=== PATIENT | female | born 1975 | race Caucasian/White ===

== ENCOUNTER 2018-11-02 14:17 | Inpatient (IN) | payer OTHER ==
[2018-11-02 15:31] VITALS: BMI 24.7
--- NOTE | 2018-11-02 16:12 | HP ---
COWS - Scale Resting Pulse: 0= [place] 80 or Below Sweatin=Flushed/Facial Moisture Restless Observation: 3= Extraneous Movement Pupil Size: 0= Normal to Room Light Bone or Joint Aches: 1= Mild Discomfort Runny Nose/ Eye Tearin= None GI Upset > 30mins: 1= Stomach Cramp Tremor Observation: 2= Slight Tremor Visible Yawning Observation: 0= None Anxiety or Irritability: 2=Irritable/Anxious Goose Flesh Skin: 0=Smooth Skin COWS Score: 11 CIWA Score Nausea/Vomitin-Mild Nausea/No Vomiting Muscle Tremors: 4-Moderate,w/Arms Extend Anxiety: 4-Mod. Anxious/Guarded Agitation: 4-Moderately Restless Paroxysmal Sweats: 2 Orientation: 0-Oriented Tacttile Disturbances: 0-None Auditory Disturbances: 0-None Visual Disturbances: 0-None Headache: 0-None Present CIWA-Ar Total Score: 15 - Admission Criteria OASAS Guidelines: Admission for Medically Managed Detox: Requires at least one of the followin. CIWA greater than 12 2. Seizures within the past 24 hours 3. Delirium tremens within the past 24 hours 4. Hallucinations within the past 24 hours 5. Acute intervention needed for co occurring medical disorder 6. Acute intervention needed for co occurring psychiatric disorder 7. Severe withdrawal that cannot be handled at a lower level of care (continued vomiting, continued diarrhea, abnormal vital signs) requiring intravenous medication and/or fluids 8. Admission ROS [facility] Allergies/Adverse Reactions: Allergies Allergy/AdvReac Type Severity Reaction Status Date / Time No Known Allergies Allergy Verified 11/02/18 15:23 History of Present Illness: pt here requesting detox from opiate use , reports moved to [place] from [place] in March 2018 , reports rx meds x 17 years left knee 2/2 injury , illicit use x10 years after she no longer had rx for pain meds , reports spending 200k / year on pain meds , financing habit through work and family $$ , since coming to [place] started using heroin , currently 6 bags /day " more if I can get it " denies IVDU , latest use this a.m. 9 o' clock 1 bag, current symptoms as above . Previous detox in [facility] xanax - reports 2 sticks/day since 3 years ago , reports withdrawal if not taking , denies seizures , blackouts etoh - occasional use tobacco - 1 ppd , interested in smoking cessation " not bad enough to want to try " cocaine : occasional use denies IVDU cannabis : occasional 4 fentanyl - denies use . PMHX : reports hypoglycemia PSHx : denies PSych denies , denies current SI / Hi age 20 in [place] , LMP now SHx : lives w/ friend , unemployed , planning to return to [place] , legal - denies Exam Limitations: Clinical Condition - Ebola screening Have you traveled outside of the country in the last 21 days: No Have you had contact with anyone from an Ebola affected area: No Do you have a fever: No - Review of Systems Constitutional: See HPI EENT: reports: See HPI Respiratory: reports: No Symptoms reported Cardiac: reports: No Symptoms Reported GI: reports: See HPI : reports: No Symptoms Reported Musculoskeletal: reports: See HPI, Back Pain, Joint Pain Neuro: reports: See HPI Endocrine: reports: See HPI Psychiatric: reports: Orientated x3, Agitated, Anxious Patient History - Smoking Cessation Smoking history: Current every day smoker Initiated information on smoking cessation: No - Substances abused Alprazolam (Xanax) Substance route: Inhalation Frequency: Daily Amount used: 4mg Age of first use: 38 Date of last use: 11/01/18 Heroin Substance route: Inhalation Frequency: Daily Amount used: 10bags Age of first use: 42 Date of last use: 11/02/18 Family Disease History - Family Disease History Family History: Denies Admission Physical Exam [facility] - Vital Signs Vital Signs: Vital Signs - 24 hr 11/02/18 15:21 Temperature 97.0 F L Pulse Rate 72 Respiratory 18 Rate Blood Pressure 145/74 - Physical General Appearance: Yes: Moderate Distress, Sweating, Anxious HEENTM: Yes: EOMI, Hearing grossly Normal, Normocephalic, Normal Voice Respiratory: Yes: Lungs Clear, Normal Breath Sounds, No Respiratory Distress, No Accessory Muscle Use Neck: Yes: No masses,lesions,Nodules, Trachea in good position Cardiology: Yes: Regular Rhythm, Regular Rate, S1, S2 Abdominal: Yes: Non Tender, Soft Back: Yes: Normal Inspection Musculoskeletal: Yes: Gait Steady Extremities: Yes: Normal Range of Motion, Non-Tender Neurological: Yes: Fully Oriented, Alert, Motor Strength 5/5 Integumentary: Yes: Warm - Diagnostic (1) Opiate abuse, continuous Current Visit: Yes Status: Acute (2) Sedative hypnotic or anxiolytic dependence Current Visit: Yes Status: Acute (3) Cocaine abuse Current Visit: Yes Status: Acute (4) Cannabis abuse Current Visit: Yes Status: Acute (5) Nicotine dependence Current Visit: Yes Status: Chronic Qualifiers: Nicotine product type: cigarettes Breathalyzer - Breathalyzer Breathalyzer: 0 Urine Drug Screen - Test Device Lot number: [id number] Expiration date: 07/26/20 - Control Is test valid?: Yes - Results Drug screen NEGATIVE: No Urine drug screen results: THC-Marijuana, MADELEINE-Cocaine, FEN-Fentanyl, MOP-Opiates , OXY-Oxycodone, BZO-Benzodiazepines Inpatient Rehab Admission - Rehab Decision to Admit Inpatient rehab admission?: No
[2018-11-02] MEDS ORDERED: MENTHOL/PHENOL 1 EACH UD MM PRN (16:24)
[2018-11-02] MEDS ORDERED: BISMUTH SUBSALICYLATE 524 MG/30 ML UD PO PRN (16:24)
[2018-11-02] MEDS ORDERED: ACETAMINOPHEN 325 MG TABLET (FP) PO PRN ×2 (16:24)
[2018-11-02] MEDS ORDERED: MAGNESIUM HYDROX 2400MG/30ML ORAL SUSPENSION 30 ML CUP PO PRN (16:24)
[2018-11-02] MEDS ORDERED: IBUPROFEN 400 MG TABLET (FP) PO PRN (16:24)
[2018-11-02] MEDS ORDERED: MAGNESIUM CITRATE 300 ML BOTTLE PO PRN (16:24)
[2018-11-02] MEDS: chlordiazePOXIDE HCL 25 MG CAPSULE PO SCH ×2 (18:38→22:42)
[2018-11-02] MEDS: THIAMINE HCL 100 MG TABLET (FP) PO SCH (22:43)
[2018-11-02] MEDS: MELATONIN 5 MG TABLETS PO PRN (22:43)
[2018-11-02] MEDS ORDERED: METHADONE HCL 10 MG TABLET (FOR DETOX USE ONLY) PO ONE (23:00)
[2018-11-03] MEDS: chlordiazePOXIDE HCL 25 MG CAPSULE PO SCH ×4 (06:19→22:47)
[2018-11-03] MEDS ORDERED: METHADONE HCL 5 MG TABLET (FOR DETOX USE ONLY) PO ONE (10:00)
[2018-11-03] MEDS: PRENATAL VITAMINS W/ FOLIC ACID TABLET (FP) PO SCH (10:24)
[2018-11-03] MEDS: NICOTINE POLACRILEX 2 MG GUM BUC PRN ×3 (10:27→15:47)
[2018-11-03] MEDS: MAG HYDROX/AL HYDROX/SIMETH 30 ML UNIT-DOSE CUP PO PRN ×2 (10:28→19:55)
[2018-11-03 11:41] LABS: HEMATOCRIT 38.3 % (32.4-45.2); HEMOGLOBIN 12.8 GM/dL (10.7-15.3); MCH 33.6 pg (25.7-33.7); MCHC 33.5 g/dl (32.0-36.0); MEAN CELL VOLUME 100.5 fl (80-96); MEAN PLT VOLUME 9.4 fl (7.5-11.1); PLATELET COUNT 286 K/MM3 (134-434); RBC 3.81 M/mm3 (3.60-5.2); RDW 13.6 % (11.6-15.6)
[2018-11-03 11:42] LABS: ALBUMIN 3.2 g/dl (3.4-5.0); BILIRUBIN,TOTAL 0.5 mg/dL (0.2-1); CALCIUM 8.7 mg/dL (8.5-10.1); CREATININE 1.1 mg/dL (0.55-1.3); POTASSIUM 3.4 mmol/L (3.5-5.1); TOT PROT 6.1 g/dl (6.4-8.2)
--- NOTE | 2018-11-03 11:45 | EKG ---
Test Reason : Blood Pressure : / mmHG Vent. Rate : 068 BPM Atrial Rate : 068 BPM P-R Int : 108 ms QRS Dur : 074 ms QT Int : 404 ms P-R-T Axes : 047 059 053 degrees QTc Int : 429 ms SINUS RHYTHM WITH SHORT [place] OTHERWISE NORMAL ECG NO PREVIOUS ECGS AVAILABLE Confirmed by RICARDO SHEPARD, GRISELDA ([id number]) on 11/03/2018 11:44:51 AM Referred By: Confirmed By:GRISELDA SILVA MD
--- NOTE | 2018-11-03 12:25 | PN ---
[facility] CIWA - CIWA Score Nausea/Vomitin-No Nausea/No Vomiting Muscle Tremors: 2 Anxiety: 3 Agitation: 1-Slight > Activity Paroxysmal Sweats: 4-Forehead w/Sweat Beads Orientation: 0-Oriented Tacttile Disturbances: 0-None Auditory Disturbances: 0-None Visual Disturbances: 0-None Headache: 1-Very Mild CIWA-Ar Total Score: 11 S COWS - Scale Resting Pulse: 0= [place] 80 or Below Sweatin=Flushed/Facial Moisture Restless Observation: 1= Difficult to Sit Still Pupil Size: 0= Normal to Room Light Bone or Joint Aches: 1= Mild Discomfort Runny Nose/ Eye Tearin= None GI Upset > 30mins: 0= None Tremor Observation of Outstretched Hands: 2= Slight Tremor Visible Yawning Observation: 1= 1-2x During Session Anxiety or Irritability: 2=Irritable/Anxious Goose Flesh Skin: 0=Smooth Skin COWS Score: 9 [facility] Progress Note (SOAP) Subjective: c/o anxiety, mild body aches/headache, and tremor. Objective: 11/03/18 12:28 Vital Signs 11/03/18 11/03/18 05:00 10:01 Temperature 97.7 F 98.1 F Pulse Rate 57 L 77 Respiratory 16 18 Rate Blood Pressure 112/74 139/68 Lab Results WBC 5.0 K/mm3 (4.0-10.0) 11/03/18 08:00 RBC 3.81 M/mm3 (3.60-5.2) 11/03/18 08:00 Hgb 12.8 GM/dL (10.7-15.3) 11/03/18 08:00 Hct 38.3 % (32.4-45.2) 11/03/18 08:00 MCV 100.5 fl (80-96) H 11/03/18 08:00 MCHC 33.5 g/dl (32.0-36.0) 11/03/18 08:00 RDW 13.6 % (11.6-15.6) 11/03/18 08:00 Plt Count 286 K/MM3 (134-434) 11/03/18 08:00 Sodium 139 mmol/L (136-145) 11/03/18 08:00 Potassium 3.4 mmol/L (3.5-5.1) L 11/03/18 08:00 Chloride 104 mmol/L (98-107) 11/03/18 08:00 Carbon Dioxide 28 mmol/L (21-32) 11/03/18 08:00 Anion Gap 7 MMOL/L (8-16) L 11/03/18 08:00 BUN 16 mg/dL (7-18) 11/03/18 08:00 Creatinine 1.1 mg/dL (0.55-1.3) 11/03/18 08:00 Random Glucose 99 mg/dL (74-106) 11/03/18 08:00 Calcium 8.7 mg/dL (8.5-10.1) 11/03/18 08:00 Labs reviewed. K+ level is 3.4 Assessment: 11/03/18 12:29 AOX3, in no respiratory distress withdrawal symptoms. Plan: continue detox increase fluids Potassium 20meq po daily for 3days and repeat potassium level.
--- NOTE | 2018-11-03 12:32 | PN ---
[facility] Progress Note Note: Pt's K+ level is 3.4, Potassium 20meq po daily for 3days ordered and repeat potassium level after.
[2018-11-03] MEDS: POTASSIUM CHLORIDE TABS 20 MEQ TABLET.ER (FP) PO SCH (14:50)
[2018-11-03] MEDS: chlordiazePOXIDE HCL 25 MG CAPSULE PO PRN ×2 (15:45→19:55)
[2018-11-03] MEDS: hydrOXYzine PAMOATE 25 MG CAPSULE (FP) PO PRN (15:45)
[2018-11-03] MEDS: PROCHLORPERAZINE MALEATE 5 MG TABLET PO PRN (19:55)
[2018-11-03] MEDS: THIAMINE HCL 100 MG TABLET (FP) PO SCH (22:46)
[2018-11-03] MEDS: MELATONIN 5 MG TABLETS PO PRN (22:47)
[2018-11-04] MEDS: chlordiazePOXIDE HCL 25 MG CAPSULE PO SCH ×2 (06:23→10:15)
[2018-11-04] MEDS: hydrOXYzine PAMOATE 25 MG CAPSULE (FP) PO PRN ×2 (06:25→17:50)
[2018-11-04] MEDS: PROCHLORPERAZINE MALEATE 5 MG TABLET PO PRN ×2 (08:52→21:54)
[2018-11-04] MEDS: PRENATAL VITAMINS W/ FOLIC ACID TABLET (FP) PO SCH (09:38)
[2018-11-04] MEDS: POTASSIUM CHLORIDE TABS 20 MEQ TABLET.ER (FP) PO SCH (09:38)
[2018-11-04] MEDS: METHOCARBAMOL 500 MG TABLET PO PRN ×2 (09:38→21:56)
[2018-11-04] MEDS ORDERED: METHADONE HCL 10 MG TABLET (FOR DETOX USE ONLY) PO ONE (10:00)
[2018-11-04 10:53] LABS: ALBUMIN 3.3 g/dl (3.4-5.0); BILIRUBIN,TOTAL 0.4 mg/dL (0.2-1); CALCIUM 9.3 mg/dL (8.5-10.1); CREATININE 0.9 mg/dL (0.55-1.3); TOT PROT 6.2 g/dl (6.4-8.2)
[2018-11-04] MEDS ORDERED: TRIMETHOBENZAMIDE HCL 200MG/2ML INJ IM PRN (11:29)
[2018-11-04] MEDS: NICOTINE POLACRILEX 2 MG GUM BUC PRN ×3 (12:47→17:50)
[2018-11-04] MEDS ORDERED: chlordiazePOXIDE HCL 10 MG CAPSULE PO PRN (17:00)
[2018-11-04] MEDS: chlordiazePOXIDE HCL 10 MG CAPSULE PO SCH ×2 (17:46→22:25)
--- NOTE | 2018-11-04 18:04 | PN ---
[facility] CIWA - CIWA Score Nausea/Vomitin-Mild Nausea/No Vomiting Muscle Tremors: 2 Anxiety: 2 Agitation: 2 Paroxysmal Sweats: 2 Orientation: 0-Oriented Tacttile Disturbances: 0-None Auditory Disturbances: 0-None Visual Disturbances: 0-None Headache: 0-None Present CIWA-Ar Total Score: 9 [facility] COWS - Scale Resting Pulse: 0= [place] 80 or Below Sweatin= Chills/Flushing Restless Observation: 1= Difficult to Sit Still Pupil Size: 0= Normal to Room Light Bone or Joint Aches: 2= Severe Diffuse Aches Runny Nose/ Eye Tearin= Runny Nose/Eyes GI Upset > 30mins: 2= Nausea/Diarrhea Tremor Observation of Outstretched Hands: 0= None Yawning Observation: 0= None Anxiety or Irritability: 2=Irritable/Anxious Goose Flesh Skin: 0=Smooth Skin COWS Score: 10 S Progress Note (SOAP) Subjective: Upset stomach, vomiting, chills, sweating Objective: 11/04/18 18:01 Last Vital Signs Temp Pulse Resp BP Pulse Ox 97.3 F L 66 18 114/70 11/04/18 13:42 11/04/18 13:42 11/04/18 13:42 11/04/18 13:42 Laboratory Tests 11/03/18 11/03/18 11/03/18 08:00 08:00 08:00 WBC 5.0 RBC 3.81 Hgb 12.8 Hct 38.3 MCV 100.5 H MCH 33.6 MCHC 33.5 RDW 13.6 Plt Count 286 MPV 9.4 Sodium 139 Potassium 3.4 L Chloride 104 Carbon Dioxide 28 Anion Gap 7 L BUN 16 Creatinine 1.1 Est GFR (CKD-EPI)AfAm 72.73 Est GFR (CKD-EPI)NonAf 62.75 Random Glucose 99 Calcium 8.7 Total Bilirubin 0.5 AST 9 L ALT 12 L Alkaline Phosphatase 46 Total Protein 6.1 L Albumin 3.2 L RPR Titer Nonreactive 11/04/18 07:40 WBC RBC Hgb Hct MCV MCH MCHC RDW Plt Count MPV Sodium 138 Potassium 4.0 Chloride 103 Carbon Dioxide 28 Anion Gap 7 L BUN 14 Creatinine 0.9 Est GFR (CKD-EPI)AfAm 92.70 Est GFR (CKD-EPI)NonAf 79.98 Random Glucose 71 L Calcium 9.3 Total Bilirubin 0.4 AST 7 L ALT 12 L Alkaline Phosphatase 44 L Total Protein 6.2 L Albumin 3.3 L RPR Titer Labs reviewed Assessment: 11/04/18 18:02 Withdrawal symptoms Plan: Continue detox Encouraged PO water hydration Tigan 200mg IM q8hr prn N/V
[2018-11-04] MEDS: THIAMINE HCL 100 MG TABLET (FP) PO SCH (21:53)
[2018-11-04] MEDS: MELATONIN 5 MG TABLETS PO PRN (21:54)
[2018-11-05] MEDS ORDERED: METHADONE HCL 5 MG TABLET (FOR DETOX USE ONLY) PO ONE (06:00)
[2018-11-05] MEDS: chlordiazePOXIDE HCL 10 MG CAPSULE PO SCH ×3 (06:19→17:34)
[2018-11-05] MEDS: METHOCARBAMOL 500 MG TABLET PO PRN ×3 (06:20→22:05)
[2018-11-05] MEDS: POTASSIUM CHLORIDE TABS 20 MEQ TABLET.ER (FP) PO SCH (10:04)
[2018-11-05] MEDS: PRENATAL VITAMINS W/ FOLIC ACID TABLET (FP) PO SCH (10:04)
[2018-11-05] MEDS: NICOTINE POLACRILEX 2 MG GUM BUC PRN ×2 (12:33→18:01)
--- NOTE | 2018-11-05 13:56 | PN ---
[facility] Progress Note (SOAP) Subjective: sweats anxiety feeling better Objective: 11/05/18 13:55 Vital Signs Temperature 97.7 F 11/05/18 13:34 Pulse Rate 65 11/05/18 13:34 Respiratory Rate 18 11/05/18 13:34 Blood Pressure 113/67 11/05/18 13:34 O2 Sat by Pulse Oximetry (%) aaox3 ambulating no acute distress Assessment: 11/05/18 13:55 mild withdrawal sx Plan: continue detox increase fluids d/c in am
[2018-11-05] MEDS: hydrOXYzine PAMOATE 25 MG CAPSULE (FP) PO PRN ×2 (14:15→20:02)
[2018-11-05] MEDS: PROCHLORPERAZINE MALEATE 5 MG TABLET PO PRN (20:01)
[2018-11-05] MEDS: MAG HYDROX/AL HYDROX/SIMETH 30 ML UNIT-DOSE CUP PO PRN (20:03)
[2018-11-05] MEDS: MELATONIN 5 MG TABLETS PO PRN (22:05)
[2018-11-05] MEDS: THIAMINE HCL 100 MG TABLET (FP) PO SCH (22:06)
[2018-11-06] MEDS: chlordiazePOXIDE HCL 10 MG CAPSULE PO SCH (05:30)
[2018-11-06] MEDS: METHOCARBAMOL 500 MG TABLET PO PRN (05:39)
[2018-11-06 06:49] VITALS: BP 103/54; PULSE 56; TEMP 97.3
--- NOTE | 2018-11-06 09:30 | DS ---
[facility] Detox Discharge Summary Admission Date: 11/02/18 Discharge Date: 11/06/18 - History Present History: Alcohol Dependence, Cannabis Dependence, Sedative Dependence - Physical Exam Results Vital Signs: Vital Signs Temperature 97.3 F L 11/06/18 06:00 Pulse Rate 56 L 11/06/18 06:00 Respiratory Rate 18 11/06/18 06:00 Blood Pressure 103/54 L 11/06/18 06:00 O2 Sat by Pulse Oximetry (%) - Treatment Hospital Course: Detox Protocol Followed, Detoxed Safely, Responded well, Discharged Condition Good, Rehab Referral Accepted - Medication Discharge Medications: Ambulatory Orders NK [No Known Home Medication] 11/02/18 - Diagnosis (1) Cannabis abuse Current Visit: Yes Status: Chronic (2) Cocaine abuse Current Visit: Yes Status: Chronic (3) Opiate abuse, continuous Current Visit: Yes Status: Acute (4) Sedative hypnotic or anxiolytic dependence Current Visit: Yes Status: Chronic (5) Nicotine dependence Current Visit: Yes Status: Chronic Qualifiers: Nicotine product type: cigarettes Substance use status: uncomplicated Qualified Code(s): F17.210 - Nicotine dependence, cigarettes, uncomplicated - AMA Did Patient Leave Against Medical Advice: No (pt declined aftercare. [facility])
== END 2018-11-06 09:16 | disposition home or self-care (01) | DRG 773 ==
LOC: YASAS 14:17 → Y6N 17:27
PROVIDERS: ADMIT Surgery; ATTEND Surgery
PROC: HZ2ZZZZ Detoxification Services for Substance Abuse Treatment (ICD-10-PCS; principal; 2018-11-02)
DX: F11.23 Opioid dependence with withdrawal (principal); F13.230 Sedative, hypnotic or anxiolytic dependence with withdrawal, uncomplicated; F14.10 Cocaine abuse, uncomplicated; F12.10 Cannabis abuse, uncomplicated; F17.210 Nicotine dependence, cigarettes, uncomplicated; F41.9 Anxiety disorder, unspecified
CPT/HCPCS: 36415; 80053; 81025; 85027; 86593; 93005; 93010